=== PATIENT | female | born 1985 | race Caucasian/White ===

== ENCOUNTER 2021-06-24 18:20 | Emergency (ER) | payer OTHER ==
[2021-06-24] MEDS ORDERED: IBUPROFEN 600 MG TABLET (FP) PO ONE ×2 (18:46→18:49)
[2021-06-24 18:58] VITALS: BP 104/61; PULSE 83; TEMP 99.3; BMI 20.9
== END 2021-06-24 19:58 | disposition home or self-care (01) ==
LOC: FER 18:20
DX: S99.912A Unspecified injury of left ankle, initial encounter (principal)
CPT/HCPCS: 73610-TC-LT-FY; 73630-TC-LT; 99284-25

== ENCOUNTER 2021-06-27 06:08 | Day surgery (SDC) | payer OTHER ==
[2021-06-26 10:06] VITALS: BMI 20.9
[2021-06-27] MEDS ORDERED: ROPIVACAINE HCL/PF 100 MG/20 ML VIAL ONE (07:16)
[2021-06-27] MEDS ORDERED: MIDAZOLAM HCL 2 MG/2 ML SINGLE DOSE VIAL ONE (07:29)
[2021-06-27] MEDS ORDERED: KETAMINE HCL 200 MG/20 ML VIAL ONE (07:31)
[2021-06-27] MEDS ORDERED: PROPOFOL 20 ML ONE ×5 (07:31→08:45)
[2021-06-27] MEDS ORDERED: GLYCOPYRROLATE 0.2 MG/1 ML VIAL ONE (07:31)
[2021-06-27] MEDS ORDERED: ONDANSETRON 4 MG/2 ML VIAL ONE (07:32)
[2021-06-27] MEDS ORDERED: ceFAZolin SODIUM 1 GM VIAL ONE ×2 (07:32)
[2021-06-27] MEDS ORDERED: oxyCODONE HCL 5 MG TABLET PO PRN ×2 (07:47)
[2021-06-27] MEDS ORDERED: ONDANSETRON 4 MG/2 ML VIAL IVPUSH PRN (07:47)
[2021-06-27] MEDS ORDERED: LACTATED RINGERS SOLUTION 1,000 ML IV SCH (08:00)
[2021-06-27 11:45] VITALS: TEMP 97.9
[2021-06-27 12:47] VITALS: BP 113/74; PULSE 71
== END 2021-06-27 12:35 | disposition home or self-care (01) ==
LOC: FASU 06:08
PROVIDERS: ATTEND Orthopaedic Surgery
PROC: 0QSH04Z Reposition Left Tibia with Internal Fixation Device, Open Approach (ICD-10-PCS; 2021-06-27)
PROC: 0QSK04Z Reposition Left Fibula with Internal Fixation Device, Open Approach (ICD-10-PCS; principal; 2021-06-27 08:52)
DX: S82.842A Displaced bimalleolar fracture of left lower leg, initial encounter for closed fracture (principal); X58.XXXA Exposure to other specified factors, initial encounter; Y93.9 Activity, unspecified; Y92.9 Unspecified place or not applicable
CPT/HCPCS: 76000-TC-FY; 81025; 94760